=== PATIENT | male | born 1985 | race Caucasian/White ===

== ENCOUNTER 2017-12-17 18:09 | Emergency (ER) | payer MEDICAID ==
[2017-12-17] MEDS ORDERED: guaiFENesin-Codeine 100-10mg/5ml Syrup (5 ml) UD PO STA (18:35)
[2017-12-17] MEDS ORDERED: Sodium Chloride 0.9% 1,000 ML IV STA (18:35)
--- NOTE | 2017-12-17 18:35 | ED PDOC ---
Arrival/HPI - General Chief Complaint: Flu-like Symptoms Time Seen by Provider: 12/17/17 18:26 Historian: Patient - History of Present Illness Narrative History of Present Illness (Text): 12/17/17 18:26 32 y/o male, no significant pmh, nkda, c/o cough/bodyache and fever started acutely yesterday. Dry coughing, associated with bodyache and tmax 101F at home , no antipyretic taken at home, no recent traveling for the past 4 weeks, no night sweat, no rash, no numbness or tingling, no palpitation, no dizziness, no other medical or psychological complaints. Past Medical History - Provider Review Nursing Documentation Reviewed: Yes - Psychiatric Hx Psychophysiologic Disorder: No Hx Substance Use: No Family/Social History - Physician Review Nursing Documentation Reviewed: Yes Family/Social History: Unknown Family HX Smoking Status: Heavy Smoker > 10 Cigarettes Daily Hx Alcohol Use: No Hx Substance Use: No Allergies/Home Meds Allergies/Adverse Reactions: Allergies No Known Allergies Allergy (Verified 12/17/17 18:13) Review of Systems - Review of Systems Constitutional: Fatigue, Fevers Eyes: absent: Vision Changes ENT: absent: Hearing Changes Respiratory: Cough. absent: SOB, Sputum, Wheezing Cardiovascular: absent: Chest Pain Gastrointestinal: absent: Abdominal Pain, Nausea, Vomiting Musculoskeletal: Myalgias. absent: Arthralgias, Back Pain Skin: absent: Rash, Pruritis Neurological: absent: Headache, Dizziness Psychiatric: absent: Anxiety, Depression, Suicidal Ideation Physical Exam Vital Signs Reviewed: Yes Vital Signs Temp Pulse Resp BP Pulse Ox 12/17/17 20:55 100 F H 90 17 107/60 96 12/17/17 18:17 100.8 F H 98 H 18 107/64 100 Temperature: Febrile Blood Pressure: Normal Pulse: Regular Respiratory Rate: Normal Appearance: Positive for: Well-Appearing, Non-Toxic Pain Distress: Mild Mental Status: Positive for: Alert and Oriented X 3 - Systems Exam Head: Present: Atraumatic, Normocephalic Pupils: Present: PERRL Extroacular Muscles: Present: EOMI Conjunctiva: Present: Normal Mouth: Present: Moist Mucous Membranes Nose (External): Present: Atraumatic. No: Abrasion, Contusion, Laceration Nose (Internal): Present: Normal Inspection, No Active Bleeding. No: Rhinorrhea , Septal Hematoma, Epistaxis Neck: Present: Normal Range of Motion, Trachea Midline. No: MIDLINE TENDERNESS , Paraspinal Tenderness, Lymphadenopathy Respiratory/Chest: Present: Clear to Auscultation, Good Air Exchange. No: Respiratory Distress, Accessory Muscle Use, Wheezes, Decreased Breath Sounds, Rales, Retracting, Rhonchi, Tachypneic, Tender to Palpation Cardiovascular: Present: Regular Rate and Rhythm, Normal S1, S2. No: Murmurs Abdomen: Present: Normal Bowel Sounds. No: Tenderness, Distention, Peritoneal Signs, Rebound, Guarding Back: Present: Normal Inspection. No: CVA Tenderness, Midline Tenderness, Paraspinal Tenderness, Pain with Leg Raise, Decubitus Ulcer Upper Extremity: Present: Normal Inspection. No: Cyanosis, Edema Lower Extremity: Present: Normal Inspection. No: Edema Neurological: Present: GCS=15, Speech Normal, Motor Func Grossly Intact, Gait Normal, Memory Normal Skin: Present: Warm, Dry, Normal Color. No: Rashes Psychiatric: Present: Alert, Oriented x 3, Normal Insight, Normal Concentration Medical Decision Making ED Course and Treatment: 12/17/17 18:39 -labs/rapid flu -chest xray -IVF/tylenol/coughing syrup -observe and reassess 12/17/17 20:42 -Chest xray: no active disease -Labs are non-significant -UA show no UTI -Rapid flu is negative but clinical suspicious is high -Azithromycin 500mg and tamiflu 75mg ordered. -Pt. feels much better and eating and drinking well, no abdominal pain and no neck stiffness, will discharge home. -Discharge home with zithromax, tamiflu, tylenol, tessalon, stay hydrated, bed rest, follow up with your own pmd within 2 days, return to the ER for any new or worsening signs or symptoms. - Lab Interpretations Lab Results: 12/17/17 19:04 12/17/17 19:04 Lab Results 12/17/17 20:10: Urine Color Yellow, Urine Appearance Clear, Urine pH 6.5, Ur Specific [place] 1.020, Urine Protein Trace H, Urine Glucose (UA) Negative, Urine Ketones Negative, Urine Blood Negative, Urine Nitrate Negative, Urine Bilirubin Negative, Urine Urobilinogen 0.2, Ur Leukocyte Esterase Negative, Urine RBC 0 - 2, Urine WBC 0 - 2, Ur Epithelial Cells 0 - 2, Urine Bacteria Large 12/17/17 19:04: WBC 5.1, RBC 4.68, Hgb 14.4, Hct 42.5, MCV 90.8, MCH 30.8, MCHC 33.9, RDW 13.1, Plt Count 221, MPV 9.6, Gran % 53.6, Lymph % (Auto) 34.7, Ness % (Auto) 10.3 H, Eos % (Auto) 0.8 L, Baso % (Auto) 0.6, Gran # 2.71, Lymph # ( Auto) 1.8, Ness # (Auto) 0.5, Eos # (Auto) 0.0, Baso # (Auto) 0.03 12/17/17 19:04: Sodium 141, Potassium 3.9, Chloride 102, Carbon Dioxide 26, Anion Gap 17, BUN 14, Creatinine 0.8, Est GFR ( Amer) > 60, Est GFR (Non- Af Amer) > 60, Random Glucose 87, Calcium 9.4, Total Bilirubin 0.4, AST 42, ALT 41, Alkaline Phosphatase 61, Total Protein 7.5, Albumin 4.3, Globulin 3.2, Albumin/Globulin Ratio 1.4 12/17/17 18:35: Influenza Typ A,B (EIA) Negative for flu a/b - RAD Interpretation Radiology Orders: 12/17/17 18:35 CHEST PORTABLE [RAD] Stat no active disease Pass Worker: Radiologist - Medication Orders Current Medication Orders: Discontinued Medications Acetaminophen (Tylenol 325mg Tab) 650 mg PO STAT STA Stop: 12/17/17 18:36 Last Admin: 12/17/17 19:10 Dose: 650 mg MAR Pain/Vitals Document 12/17/17 19:10 RD (Rec: 12/17/17 19:32 [facility] Pain Reassessment Is This A Pain ReAssessment? No Sleep Is patient sleeping during reassessment? No Presence of Pain Presence of Pain No Azithromycin (Zithromax) 500 mg PO STAT STA PRN Reason: Protocol Stop: 12/17/17 20:19 Last Admin: 12/17/17 20:43 Dose: 500 mg Guaifenesin/Codeine Phosphate (Robitussin W/Codeine) 5 ml PO STAT STA Stop: 12/17/17 18:36 Last Admin: 12/17/17 19:10 Dose: 5 ml Sodium Chloride (Sodium Chloride 0.9%) 1,000 mls @ 999 mls/hr IV .Q1H1M STA Stop: 12/17/17 19:35 Last Admin: 12/17/17 19:10 Dose: 999 mls/hr eMAR Start Stop Document 12/17/17 19:10 RD (Rec: 12/17/17 19:33 RD [facility]) Intravenous Solution Start Date 12/17/17 Start Time 19:10 End Date 12/17/17 End time 20:10 Total Infusion Time 60 Oseltamivir Phosphate (Tamiflu Cap) 75 mg PO STAT STA PRN Reason: Protocol Stop: 12/17/17 20:19 Last Admin: 12/17/17 20:43 Dose: 75 mg - PA / DIGITAL COORDINATOR / Resident Statement / has reviewed & agrees with the documentation as recorded. Disposition/Present on Arrival - Present on Arrival Any Indicators Present on Arrival: No History of DVT/PE: No History of Uncontrolled Diabetes: No Urinary Catheter: No History of Decub. Ulcer: No History Surgical Site Infection Following: None - Disposition Have Diagnosis and Disposition been Completed?: Yes Diagnosis: URI (upper respiratory infection), Flu-like symptoms Disposition: HOME/ ROUTINE Disposition Time: 20:44 Patient Plan: Discharge Condition: IMPROVED Additional Instructions: -Discharge home with zithromax, tamiflu, tylenol, tessalon, stay hydrated, bed rest, follow up with your own pmd within 2 days, return to the ER for any new or worsening signs or symptoms. Prescriptions: Acetaminophen [Tylenol 325mg tab] 2 tab PO QID PRN #35 tab PRN Reason: Other Azithromycin [Zithromax] 250 mg PO DAILY #4 tab Benzonatate [Tessalon Perles] 100 mg PO TID PRN #21 sgl PRN Reason: Other Oseltamivir Phosphate [Tamiflu] 75 mg PO BID #10 capsule Referrals: [facility] [place] - Follow up with primary Forms: WORK NOTE
[2017-12-17 19:47] LABS: ALB/GLOB RATIO 1.4 (1.1-1.8); ALBUMIN 4.3 g/dL (3.0-4.8); ALT/SGPT 41 U/L (7-56); AST/SGOT 42 U/L (17-59); BLOOD UREA NITROGEN 14 mg/dL (7-21); CALCIUM 9.4 mg/dL (8.4-10.5); GFR AFRICAN-AMERICAN > 60; GFR NON-AFRICAN AMERICAN > 60
[2017-12-17 19:49] LABS: BASO # 0.03 K/mm3 (0.0-2.0); BASO % 0.6 % (0.0-3.0); EOS % 0.8 % (1.5-5.0); GRAN # 2.71 (1.4-6.5); GRAN % 53.6 % (50.0-68.0); HEMOGLOBIN 14.4 g/dL (14.0-18.0); LYMPH # 1.8 (1.2-3.4); LYMPH % 34.7 % (22.0-35.0); MEAN CELL VOLUME 90.8 fl (80.0-105.0); MEAN CORPUSCULAR HEMOGLOBIN 30.8 pg (25.0-35.0); MEAN CORPUSCULAR HGB CONC 33.9 g/dl (31.0-37.0); MEAN PLATELET VOLUME 9.6 fl (7.0-11.0); MONO # 0.5 (0.1-0.6); MONO % 10.3 % (1.0-6.0); RBC 4.68 10^6/uL (3.5-6.1); RED CELL DISTRIBUTION WIDTH 13.1 % (11.5-14.5); WHITE BLOOD COUNT 5.1 10^3/ul (4.5-11.0)
[2017-12-17 20:30] LABS: PH,URINE 6.5 (4.7-8.0); URINE BILIRUBIN NEGATIVE (NEGATIVE); URINE BLOOD NEGATIVE (NEGATIVE); URINE GLUCOSE (UA) NEGATIVE (NEGATIVE); URINE LEUKOCYTE ESTERASE NEGATIVE Leu/uL (NEGATIVE); URINE NITRATE NEGATIVE (NEGATIVE); URINE PROTEIN TRACE mg/dL (<30 mg/dL); URINE UROBILINOGEN 0.2 E.U./dL (<1 E.U./dL)
[2017-12-17 20:53] LABS: URINE APPEARANCE CLEAR (CLEAR); URINE COLOR YELLOW (YELLOW)
[2017-12-17 20:56] VITALS: BP 107/60; PULSE 90; RESP 17; TEMP 100; O2SAT 96
[2017-12-17 21:07] LABS: URINE BACTERIA LARGE (NEG); URINE EPITHELIAL CELLS 0 - 2 /hpf (0-5); URINE RBC 0 - 2 /hpf (0-2); URINE WBC 0 - 2 /hpf (0-6)
--- NOTE | 2017-12-18 09:37 | RAD ---
HISTORY: cough and fever x 2 days COMPARISON: No prior. FINDINGS: LUNGS: No active pulmonary disease. PLEURA: No significant pleural effusion identified, no pneumothorax apparent. CARDIOVASCULAR: Normal. OSSEOUS STRUCTURES: No significant abnormalities. VISUALIZED UPPER ABDOMEN: Normal. OTHER FINDINGS: None. IMPRESSION: No active disease. Concordant results with the preliminary interpretation rendered by the emergency department physician procedure.
== END 2017-12-17 21:04 | disposition home or self-care (01) ==
LOC: ED 18:09
DX: J11.1 Influenza due to unidentified influenza virus with other respiratory manifestations (principal); F17.210 Nicotine dependence, cigarettes, uncomplicated
CPT/HCPCS: 71045; 80053; 81001; 85025; 87804; 96360; 99284; J7040

== ENCOUNTER 2018-04-11 21:11 | Emergency (ER) | payer MEDICAID ==
[2018-04-11 21:17] VITALS: TEMP 98.2
[2018-04-11] MEDS ORDERED: Lidocaine 1% Inj (20ml) IJ STA (21:24)
[2018-04-11] MEDS ORDERED: TDAP Vaccine 0.5 mL Syr IM ONE (21:25)
[2018-04-11] MEDS ORDERED: Sodium Chloride 0.9% 1,000 ML IV STA (21:54)
[2018-04-11 22:11] LABS: BASO # 0.04 K/mm3 (0.0-2.0); BASO % 0.6 % (0.0-3.0); EOS # 0.1 (0.0-0.7); GRAN # 3.51 (1.4-6.5); GRAN % 49.1 % (50.0-68.0); HEMOGLOBIN 13.7 g/dL (14.0-18.0); LYMPH % 42.5 % (22.0-35.0); MEAN CELL VOLUME 86.1 fl (80.0-105.0); MEAN CORPUSCULAR HEMOGLOBIN 30.2 pg (25.0-35.0); MEAN CORPUSCULAR HGB CONC 35.1 g/dl (31.0-37.0); MEAN PLATELET VOLUME 8.7 fl (7.0-11.0); MONO # 0.4 (0.1-0.6); MONO % 5.8 % (1.0-6.0); RBC 4.53 10^6/uL (3.5-6.1); RED CELL DISTRIBUTION WIDTH 12.6 % (11.5-14.5); WHITE BLOOD COUNT 7.1 10^3/ul (4.5-11.0)
[2018-04-11 22:19] LABS: INR 1.16 (0.93-1.08); PARTIAL THROMBOPLASTIN TIME 30.5 Seconds (25.1-36.5); PROTHROMBIN TIME 13.3 SECONDS (9.4-12.5)
[2018-04-11 22:21] LABS: ALB/GLOB RATIO 1.5 (1.1-1.8); ALBUMIN 4.5 g/dL (3.0-4.8); ALT/SGPT 27 U/L (7-56); AST/SGOT 32 U/L (17-59); BLOOD UREA NITROGEN 8 mg/dL (7-21); CALCIUM 9.4 mg/dL (8.4-10.5); GFR AFRICAN-AMERICAN > 60; GFR NON-AFRICAN AMERICAN > 60
--- NOTE | 2018-04-11 22:33 | ED PDOC ---
Arrival/HPI - General Chief Complaint: Abnormal Skin Integrity Time Seen by Provider: 04/11/18 21:21 - History of Present Illness Narrative History of Present Illness (Text): 04/11/18 22:28 Pt is a 32 yo M with no significant PMH presents to ED due to laceration on his left thumb. Patient states that he was working on his car with his friend. Patient's friend did not realize that the patient's hand was still inside the singer and started the car. Patient states that the radiator fan cut his left thumb in two spots. Patient denies any loss of sensation or strength in left thumb or hand. Patient denies CP, SOB, n/v/d, abdominal pain, fever, chills, MADDOX , or dizziness. PMD: none Past Medical History - Psychiatric Hx Psychophysiologic Disorder: No Hx Substance Use: No Family/Social History Family/Social History: No Known Family HX Smoking Status: Heavy Smoker > 10 Cigarettes Daily Hx Alcohol Use: No Hx Substance Use: No Allergies/Home Meds Allergies/Adverse Reactions: Allergies No Known Allergies Allergy (Verified 04/11/18 21:13) Review of Systems - Physician Review All systems were reviewed & negative as marked: Yes (12 point ROS reviewed and is negative other than what is stated in HPI.) Physical Exam Vital Signs Reviewed: Yes Vital Signs Temp Pulse Resp BP Pulse Ox 04/12/18 00:40 67 18 122/66 98 04/12/18 00:39 67 18 122/66 98 04/11/18 21:55 98.2 F 97 H 16 92/54 L 100 04/11/18 21:14 98.2 F 86 16 112/74 99 Temperature: Afebrile Blood Pressure: Normal Pulse: Regular Respiratory Rate: Normal Appearance: Positive for: Non-Toxic Pain Distress: Moderate Mental Status: Positive for: Alert and Oriented X 3 - Systems Exam Head: Present: Atraumatic, Normocephalic Pupils: Present: PERRL Extroacular Muscles: Present: EOMI Conjunctiva: Present: Normal Mouth: Present: Moist Mucous Membranes Neck: Present: Normal Range of Motion Respiratory/Chest: Present: Clear to Auscultation. No: Accessory Muscle Use, Wheezes, Rales, Rhonchi Cardiovascular: Present: Regular Rate and Rhythm, Normal S1, S2. No: Murmurs Abdomen: Present: Tenderness. No: Distention, Peritoneal Signs, Rebound, Guarding Upper Extremity: Present: Tenderness, Swelling, Erythema, Neurovascularly Intact , Other (laceration on left lateral thumb on thenar eminence and interphalangeal joint.). No: Cyanosis, Edema Lower Extremity: Present: Normal Inspection Neurological: Present: GCS=15, CN II-XII Intact, Speech Normal Skin: Present: Warm, Dry, Normal Color. No: Rashes Psychiatric: Present: Alert, Oriented x 3, Normal Insight, Normal Concentration Medical Decision Making ED Course and Treatment: 04/11/18 22:37 32 yo M presents with laceration x2 to left thumb. Plan: - Laceration site and left hand was cleaned thoroughly with soap and water for greater > 5 min. Then was irrigated with 50 cc of saline. Then site was prepped and cleaned with chlorhexidine. - Suture site - Left hand xray - Reassess and disposition During laceration repair, patient passed out. Patient was unresponsive for less than 30 seconds. Patient awoke on his own. Accucheck showed blood glucose of 57. Patient was given orange juice with improvement of his symptoms. Ring was removed Labs and EKG were obtained. EKG showed NSR. Rate 69. Labs were unremarkable. 04/11/18 23:00 Patient transfer of care will be endorsed to Dr. Collins. - Lab Interpretations Lab Results: 04/11/18 22:05 04/11/18 22:05 Lab Results 04/11/18 22:05: Sodium 141, Potassium 3.6, Chloride 104, Carbon Dioxide 25, Anion Gap 16, BUN 8, Creatinine 0.7 L, Est GFR ( Amer) > 60, Est GFR (Non -Af Amer) > 60, Random Glucose 114 H, Calcium 9.4, Total Bilirubin 0.4, AST 32, ALT 27, Alkaline Phosphatase 64, Total Protein 7.6, Albumin 4.5, Globulin 3.0, Albumin/Globulin Ratio 1.5 04/11/18 22:05: PT 13.3 H, INR 1.16 H, APTT 30.5 04/11/18 22:05: WBC 7.1 D, RBC 4.53, Hgb 13.7 L, Hct 39.0 L, MCV 86.1 D, MCH 30.2, MCHC 35.1, RDW 12.6, Plt Count 285, MPV 8.7, Gran % 49.1 L, Lymph % (Auto ) 42.5 H, Hand % (Auto) 5.8, Eos % (Auto) 2.0, Baso % (Auto) 0.6, Gran # 3.51, Lymph # (Auto) 3.0, Hand # (Auto) 0.4, Eos # (Auto) 0.1, Baso # (Auto) 0.04 - RAD Interpretation Radiology Orders: 04/11/18 21:25 HAND LEFT 3 VIEWS ROUTINE [RAD] Stat - Medication Orders Current Medication Orders: Discontinued Medications Acetaminophen (Tylenol 325mg Tab) 975 mg PO STAT STA Stop: 04/11/18 21:27 Last Admin: 04/11/18 22:45 Dose: 975 mg Cephalexin Monohydrate (Keflex) 500 mg PO STAT STA PRN Reason: Protocol Stop: 04/11/18 22:18 Last Admin: 04/11/18 22:44 Dose: 500 mg Sodium Chloride (Sodium Chloride 0.9%) 1,000 mls @ 999 mls/hr IV .Q1H1M STA Stop: 04/11/18 22:54 Last Admin: 04/11/18 22:45 Dose: 999 mls/hr eMAR Start Stop Document 04/11/18 22:45 HI (Rec: 04/11/18 22:45 HI [id number]) Intravenous Solution Start Date 04/11/18 Start Time 22:30 Cefazolin Sodium (Ancef 1gm In Ns) 1 gm in 100 mls @ 100 mls/hr IVPB STAT STA PRN Reason: Protocol Stop: 04/12/18 00:06 Last Admin: 04/11/18 23:45 Dose: 100 mls/hr eMAR Start Stop Document 04/11/18 23:45 SS (Rec: 04/11/18 23:45 SS [id number]) Intravenous Solution Start Date 04/11/18 Start Time 23:45 End Date 04/12/18 End time 00:45 Total Infusion Time 60 Lidocaine HCl (Lidocaine 1% (20ml)) 5 ml IJ STAT STA Stop: 04/11/18 21:25 Last Admin: 04/11/18 22:46 Dose: 5 ml Comments: given by ed Tetanus/Reduced Diphtheria/Acell Pertussis (Boostrix Vaccine Inj) 0.5 ml IM .ONCE ONE Stop: 04/11/18 21:26 Last Admin: 04/11/18 22:45 Dose: 0.5 ml Immunization Registry Document 04/11/18 22:45 VT (Rec: 04/11/18 22:45 VT [id number]) Immunization Registry Consent Date 12/17/17 Procedure: Wound Repair - Time Performed Time Performed: 20:00 - Time Out Time Out: Side verified, Site verified, Patient ID confirmed, Sterile procedures obs. - Procedure Procedure: Wound Repair: Laceration repair of the left thumb - Consent Obtained Consent obtained: Verbal - Performed by Performed by: Mid-level Provider (Rad Vidal DO) - Indications Indication(s):: Laceration - Location Location:: Left, Hand Finger:: Left, Thumb (lateral on thenar eminence and interphalangeal joint) Shape:: Linear Dimensions Length cm: 2 cm for both Depth:: Subcutaneous fascia - Anesthetic Technique Anesthetic Technique: Local, Regional block (left thumb digital block) Local/Regional Anesthetic:: Lidocaine 1% - Debris Debris:: None - Irrigated Irrigated with ml of normal saline: 50, also throughly cleaned with soap and water and chlorhexidine - Complexity Complexity:: Simple (one layer) - Wound repair method Sutures:: # (4 in distal laceration, 3 in proximal laceration), Size (4-0), Type (Nylon), Technique (Simple interrupted) - Patient tolerated procedure Patient Tolerated Procedure:: With Difficulty (no complications with laceration repair; patient passed out during procedure, see MDM for details.) Disposition/Present on Arrival - Present on Arrival Any Indicators Present on Arrival: No History of DVT/PE: No History of Uncontrolled Diabetes: No Urinary Catheter: No History of Decub. Ulcer: No History Surgical Site Infection Following: None - Disposition Have Diagnosis and Disposition been Completed?: Yes Diagnosis: Hand laceration, Hand fracture Disposition: HOME/ ROUTINE Disposition Time: 23:00 Condition: STABLE Discharge Instructions (ExitCare): Hand Fracture (DC), Laceration Repair With Stitches (DC) Additional Instructions: Take medication as prescribed/MUST FOLLOW UP WITH THE HAND SURGEON DR.ISAAC BROWNE Prescriptions: Cephalexin [cephalexin] 500 mg PO BID #14 cap Referrals: Osmel Latif MD [Staff Provider] - Follow up with primary Forms: [employer] (Georgian)
--- NOTE | 2018-04-11 23:04 | RAD ---
EXAM: XR Left Hand Complete, 3 or More Views CLINICAL HISTORY: 32 years old, male; Injury or trauma; Injury Hand caught in car fan; Initial encounter; Laceration; Left TECHNIQUE: Frontal, lateral and oblique views of the left hand. COMPARISON: No relevant prior studies available. FINDINGS: Bones/joints: There are tiny calcifications adjacent to the base of the first metacarpal suggesting small fracture fragments. Cortical irregularity of the proximal first metacarpal and soft tissue calcification suspicious for fracture. No dislocation. Soft tissues: There is a soft tissue laceration adjacent to the first metacarpal. IMPRESSION: Soft tissue laceration. Suspect fracture of the proximal first metacarpal with tiny fracture fragments.
[2018-04-11] MEDS ORDERED: ceFAZolin 1 gm in NS 1 GM/100 ML BAG IVPB STA (23:07)
--- NOTE | 2018-04-11 23:22 | ED PDOC ---
Physical Exam Vital Signs Temp Pulse Resp BP Pulse Ox 04/11/18 21:14 98.2 F 86 16 112/74 99 Medical Decision Making ED Course and Treatment: 04/11/18 23:10 Case endorsed to me by Dr. Goldman pending call from Surgeon Dr. Jacobson prior to discharge patient home. Patient with history of hand laceration and fracture to the phalanx of hand. 04/11/18 23:[address] Jacobson who called emergency department shortly there after. States patient can go home and follow up with his partner hand surgeon Dr. Salomon argueta. Patient states he will do so as instructed. Patient was given initial dosage of antibiotics by Dr. Goldman here in ER. Will discharge home with prescription of antibiotics and follow up instructions. Patient in agreement with this. - Lab Interpretations Lab Results: 04/11/18 22:05 04/11/18 22:05 Lab Results 04/11/18 22:05: Sodium 141, Potassium 3.6, Chloride 104, Carbon Dioxide 25, Anion Gap 16, BUN 8, Creatinine 0.7 L, Est GFR ( Amer) > 60, Est GFR (Non -Af Amer) > 60, Random Glucose 114 H, Calcium 9.4, Total Bilirubin 0.4, AST 32, ALT 27, Alkaline Phosphatase 64, Total Protein 7.6, Albumin 4.5, Globulin 3.0, Albumin/Globulin Ratio 1.5 04/11/18 22:05: PT 13.3 H, INR 1.16 H, APTT 30.5 04/11/18 22:05: WBC 7.1 D, RBC 4.53, Hgb 13.7 L, Hct 39.0 L, MCV 86.1 D, MCH 30.2, MCHC 35.1, RDW 12.6, Plt Count 285, MPV 8.7, Gran % 49.1 L, Lymph % (Auto ) 42.5 H, [place] % (Auto) 5.8, Eos % (Auto) 2.0, Baso % (Auto) 0.6, Gran # 3.51, Lymph # (Auto) 3.0, [place] # (Auto) 0.4, Eos # (Auto) 0.1, Baso # (Auto) 0.04 - RAD Interpretation Radiology Orders: 04/11/18 21:25 HAND LEFT 3 VIEWS ROUTINE [RAD] Stat - Medication Orders Current Medication Orders: Cefazolin Sodium (Ancef 1gm In Ns) 1 gm in 100 mls @ 100 mls/hr IVPB STAT STA PRN Reason: Protocol Stop: 04/12/18 00:06 Last Admin: 04/11/18 23:45 Dose: 100 mls/hr eMAR Start Stop Document 04/11/18 23:45 SS (Rec: 04/11/18 23:45 SS [id number]) Intravenous Solution Start Date 04/11/18 Start Time 23:45 End Date 04/12/18 End time 00:45 Total Infusion Time 60 Discontinued Medications Acetaminophen (Tylenol 325mg Tab) 975 mg PO STAT STA Stop: 04/11/18 21:27 Last Admin: 04/11/18 22:45 Dose: 975 mg Cephalexin Monohydrate (Keflex) 500 mg PO STAT STA PRN Reason: Protocol Stop: 04/11/18 22:18 Last Admin: 04/11/18 22:44 Dose: 500 mg Sodium Chloride (Sodium Chloride 0.9%) 1,000 mls @ 999 mls/hr IV .Q1H1M STA Stop: 04/11/18 22:54 Last Admin: 04/11/18 22:45 Dose: 999 mls/hr eMAR Start Stop Document 04/11/18 22:45 HI (Rec: 04/11/18 22:45 HI [id number]) Intravenous Solution Start Date 04/11/18 Start Time 22:30 Lidocaine HCl (Lidocaine 1% (20ml)) 5 ml IJ STAT STA Stop: 04/11/18 21:25 Last Admin: 04/11/18 22:46 Dose: 5 ml Comments: given by ed md Tetanus/Reduced Diphtheria/Acell Pertussis (Boostrix Vaccine Inj) 0.5 ml IM .ONCE ONE Stop: 04/11/18 21:26 Last Admin: 04/11/18 22:45 Dose: 0.5 ml Immunization Registry Document 04/11/18 22:45 HI (Rec: 04/11/18 22:45 HI [id number]) Immunization Registry Consent Date 12/17/17 - Scribe Statement The provider has reviewed the documentation as recorded by the Francois Walter Provider Scribe Attestation: All medical record entries made by the Scribe were at my direction and personally dictated by me. I have reviewed the chart and agree that the record accurately reflects my personal performance of the history, physical exam, medical decision making, and the department course for this patient. I have also personally directed, reviewed, and agree with the discharge instructions and disposition. Disposition/Present on Arrival - Present on Arrival Any Indicators Present on Arrival: No History of DVT/PE: No History of Uncontrolled Diabetes: No Urinary Catheter: No History of Decub. Ulcer: No History Surgical Site Infection Following: None - Disposition Have Diagnosis and Disposition been Completed?: Yes Diagnosis: Hand laceration, Hand fracture Disposition: HOME/ ROUTINE Disposition Time: 23:50 Patient Plan: Discharge Patient Problems: Current Active Problems Problem Status Onset Hand fracture Acute Hand laceration Acute Condition: STABLE Discharge Instructions (ExitCare): Hand Fracture (DC), Laceration Repair With Stitches (DC) Additional Instructions: Take medication as prescribed/MUST FOLLOW UP WITH THE HAND SURGEON DR.ISAAC ARGUETA Prescriptions: Cephalexin [cephalexin] 500 mg PO BID #14 cap Referrals: Osmel Latif MD [Staff Provider] - Follow up with primary Forms: [employer] (Georgian)
[2018-04-12 00:40] VITALS: BP 122/66; PULSE 67; RESP 18; O2SAT 98
--- NOTE | 2018-04-12 10:51 | CARD ---
APPROVED REPORT EKG Measurement Heart [id number] OR [id number] <Conclusion> Normal sinus rhythm RVCD Normal ECG Electrical artifact present
== END 2018-04-12 00:40 | disposition home or self-care (01) ==
LOC: ED 21:11
DX: S61.012A Laceration without foreign body of left thumb without damage to nail, initial encounter (principal); S61.412A Laceration without foreign body of left hand, initial encounter; S62.292A Other fracture of first metacarpal bone, left hand, initial encounter for closed fracture; W45.8XXA Other foreign body or object entering through skin, initial encounter; Y92.89 Other specified places as the place of occurrence of the external cause
CPT/HCPCS: 12002; 73130; 80053; 85025; 85610; 85730; 90471; 90715; 93005; 96365; 99284; J0690; J7030